=== PATIENT | female | born 2000 | race Caucasian/White ===

== ENCOUNTER 2021-02-07 08:02 | Inpatient (IN) ==
[2021-02-07] MEDS ORDERED: ONDANSETRON 4 MG/2 ML VIAL IV PRN ×2 (08:18→12:50)
[2021-02-07] MEDS: LACTATED RINGERS 1,000 ML IV SCH ×2 (08:20→09:18)
[2021-02-07] MEDS ORDERED: OXYTOCIN/LR 20 UNIT/1,000 ML BAG IV SCH (08:30)
[2021-02-07] MEDS ORDERED: MEPERIDINE 50 MG/1 ML VIAL ONE (08:34)
[2021-02-07] MEDS ORDERED: AMPICILLIN INJ 2,000 MG in SODIUM CHLORIDE 0.9% 100 ML IV ONE (08:35)
[2021-02-07] MEDS ORDERED: MEPERIDINE 50 MG/1 ML VIAL IV ONE (08:36)
[2021-02-07 08:37] LABS: Basophils # 0.1 10*3/uL (0.0-0.2); Basophils % 0.3 % (0.0-0.8); Eosinophils # 0.1 10*3/uL (0.0-0.87); Eosinophils % 0.6 % (0.00-10.9); Hematocrit 36.1 VOL% (35.7-47.0); Hemoglobin 11.9 GM/DL (12.0-16.0); Immature Granulocytes % 1.4 %; Immature Granulocytes Absolute 0.21 #; Lymphocytes # 1.9 10*3/uL (1.4-4.0); Lymphocytes % 12.5 % (21.3-54.2); Mean Corpuscular Volume 90.9 FL (87-102); Mean Platelet Volume 10.6 FL (9.6-12.0); Monocytes % 7.3 % (1.7-12.7); Neutrophils % 77.9 % (38.7-73.9); Platelet Count 193 T/CUMM (130-400); Red Blood Count 3.97 MC/CUMM (3.8-5.5); Red Cell Distribution Width 13.8 % (9.3-17.3); White Blood Count 14.9 T/CUMM (4-12)
[2021-02-07] MEDS ORDERED: ePHEDrine 50 MG/ML VIAL IV PRN (08:43)
[2021-02-07] MEDS ORDERED: FAMOTIDINE 20 MG/2 ML VIAL IV ONE (08:43)
[2021-02-07] MEDS ORDERED: diphenhydrAMINE 50 MG/1 ML VIAL IV PRN ×2 (08:43)
[2021-02-07] MEDS ORDERED: ONDANSETRON 4 MG/2 ML VIAL IV ONE (08:43)
[2021-02-07] MEDS ORDERED: NALOXONE 0.4 MG/ML VIAL IV PRN (08:43)
[2021-02-07] MEDS ORDERED: hydrOXYzine HCL 25 MG/1 ML VIAL IM PRN (08:43)
[2021-02-07] MEDS ORDERED: PROMETHAZINE 25 MG/1 ML VIAL IM ONE (08:43)
[2021-02-07] MEDS ORDERED: CITRIC ACID/SODIUM CITRATE 30 ML UDCUP PO ONE (08:43)
[2021-02-07 08:57] LABS: Albumin 2.6 G/DL (3.4-5.0); Bilirubin,Total 0.5 MG/DL (0.20-1.00); Calcium 8.3 MG/DL (8.5-10.1); Osmolality,Calculated 270.7 MOS/KG (273-304); Potassium 3.7 MMOL/L (3.5-5.1); Total Protein 6.9 G/DL (6.4-8.2)
[2021-02-07] MEDS ORDERED: fentaNYL 2 MCG/ROPIV 0.2% EPID 100 ML EPIDURAL SCH (09:00)
[2021-02-07 09:23] LABS: Hepatitis B Surface Ag Quant < 0.10 Index; Hepatitis B Surface Ag Result Non-Reactive (NonReactive)
[2021-02-07 09:44] LABS: HIV Antigen/Antibody Result Nonreactive (Nonreactive); Rubella Antibody IgG Result Reactive (NonReactive)
[2021-02-07] MEDS ORDERED: OXYTOCIN/LR 0 UNIT/0 ML BAG IV ONE (12:24)
[2021-02-07] MEDS ORDERED: miSOPROStoL 200 MCG TABLET ONE (12:24)
[2021-02-07] MEDS ORDERED: TRANEXAMIC ACID 1,000 MG/10 ML VIAL ONE (12:24)
[2021-02-07] MEDS ORDERED: METHYLERGONOVINE 0.2 MG/1 ML AMP ONE (12:25)
[2021-02-07] MEDS ORDERED: CARBOPROST TROMETHAMINE 250 MCG/ML AMP IM ONE (12:25)
[2021-02-07] MEDS ORDERED: PHENYLEPHRINE 1 MG/10 ML SYRINGE IV ONE (12:29)
[2021-02-07] MEDS ORDERED: LIDOCAINE MPF 2% /EPI 20 ML VIAL ONE (12:29)
[2021-02-07] MEDS ORDERED: ONDANSETRON 4 MG/2 ML VIAL ONE (12:29)
[2021-02-07] MEDS ORDERED: DEXAMETHASONE 4 MG/1 ML VIAL ONE ×2 (12:32→12:41)
[2021-02-07] MEDS ORDERED: propofoL 200 MG/20 ML VIAL IV ONE (12:41)
[2021-02-07] MEDS ORDERED: ACETAMINOPHEN INJ 1,000 MG/100 ML VIAL IV ONE (12:41)
[2021-02-07] MEDS ORDERED: KETOROLAC 30 MG/1 ML VIAL ONE (12:41)
[2021-02-07 12:42] LABS: Cord Arterial Blood HCO3 20.8 MMOL/L
[2021-02-07 12:45] LABS: Cord Venous Blood HCO3 21.7 MMOL/L; Cord Venous Blood PCO2 51.6 MMHG; Cord Venous Blood PO2 24.9
[2021-02-07] MEDS ORDERED: SIMETHICONE CHEW 80 MG TABLET PO PRN (12:50)
[2021-02-07] MEDS ORDERED: OXYTOCIN/LR 20 UNIT/1,000 ML BAG IV ONE (12:50)
[2021-02-07] MEDS ORDERED: RHO(D) IMMUNE GLOBULIN 300 MCG SYRINGE IM ONE (12:50)
[2021-02-07] MEDS ORDERED: MAGNESIUM HYDROXIDE SUSP 30 ML UDCUP PO PRN (12:50)
[2021-02-07] MEDS ORDERED: ACETAMINOPHEN 325 MG TABLET PO PRN (12:50)
[2021-02-07] MEDS ORDERED: LACTATED RINGERS 1,000 ML IV SCH (13:00)
[2021-02-07] MEDS ORDERED: SODIUM BICARBONATE 10 MEQ/10 ML SYRINGE IV ONE (13:06)
[2021-02-07 14:09] LABS: Bilirubin,Urine Negative (Negative); Blood, Urine Moderate mg/dL (Negative); Glucose,Urine (UA) Negative (Negative); Ketones,Urine 5 mg/dL (Negative); Nitrite,Urine Negative (Negative); Protein,Urine 30 MG/DL; RBC,Urine 72 /HPF (0-4); Squamous Epithelial Cell,Urine Occasional /HPF (0-10); Urine Appearance CLEAR (Clear); Urine Color Yellow (Yellow); Urine Specific Gravity 1.014 (1.001-1.035); Urine Urobilinogen < 2.0 EU/DL (0.2-1.0)
[2021-02-07] MEDS: ACETAMINOPHEN 500 MG TABLET PO SCH ×2 (18:04→23:47)
[2021-02-07] MEDS: KETOROLAC 30 MG/1 ML VIAL IV SCH (18:06)
[2021-02-07] MEDS: DOCUSATE SODIUM 100 MG CAPSULE PO SCH (21:47)
[2021-02-08] MEDS: KETOROLAC 30 MG/1 ML VIAL IV SCH ×2 (00:05→06:35)
[2021-02-08] MEDS: ACETAMINOPHEN 500 MG TABLET PO SCH (06:13)
[2021-02-08 06:28] LABS: Basophils % 0.3 % (0.0-0.8); Eosinophils % 0.1 % (0.00-10.9); Hematocrit 27.6 VOL% (35.7-47.0); Hemoglobin 9.2 GM/DL (12.0-16.0); Immature Granulocytes % 0.9 %; Immature Granulocytes Absolute 0.13 #; Lymphocytes # 1.5 10*3/uL (1.4-4.0); Mean Corpuscular HGB Conc 33.3 GM/DL (32-36); Mean Corpuscular Volume 92.6 FL (87-102); Mean Platelet Volume 10.8 FL (9.6-12.0); Monocytes % 4.7 % (1.7-12.7); Platelet Count 149 T/CUMM (130-400); Red Blood Count 2.98 MC/CUMM (3.8-5.5); Red Cell Distribution Width 13.8 % (9.3-17.3); White Blood Count 14.6 T/CUMM (4-12)
[2021-02-08] MEDS: DOCUSATE SODIUM 100 MG CAPSULE PO SCH ×2 (09:35→21:24)
[2021-02-08] MEDS: IBUPROFEN 800 MG TABLET PO PRN ×2 (09:35→21:26)
[2021-02-08] MEDS: MULTIVITAMIN (PRENATAL) TABLET PO SCH (09:35)
[2021-02-09] MEDS: MULTIVITAMIN (PRENATAL) TABLET PO SCH (09:22)
[2021-02-09] MEDS: DOCUSATE SODIUM 100 MG CAPSULE PO SCH (09:22)
[2021-02-09 12:09] VITALS: BP 118/68
== END 2021-02-09 15:45 | disposition home or self-care (01) | DRG 788 ==
LOC: N.LD 08:02 → N.OB 17:13
PROVIDERS: ADMIT Obstetrics & Gynecology; ATTEND Obstetrics & Gynecology
PROC: LDCSECT (ICD-10-PCS; 2021-02-07 12:15)